=== PATIENT | female | born 1965 | race Caucasian/White ===

== ENCOUNTER 2020-04-08 11:04 | Emergency (ER) | payer BC, OTHER ==
[~2020-04-08] VITALS: Ht 170.2 cm; Wt 113.4 kg
[~2020-04-08 11:04] MED LIST: BUSP10TA3 PO; DULO60CA41 PO; FOLI-43 PO; METH2.5T PO; OMEP40CA13 PO; SULF500T60 PO
[2020-04-08 11:09] VITALS: BP_SYST 159
--- NOTE | 2020-04-08 11:10 | NUR ---
Placed in room 07 . Placed on holiday detector operator, blood pressure machine and pulse oximeter. To gown for exam. Side rails up.
--- NOTE | 2020-04-08 11:15 | NUR ---
Pt brought by self, A&Ox4, pt presents to ER with headache/ dizziness and generalized numbness, pt states symptoms started after taking her medicine twice by accident , total of Metoprolol 50 mg and Gralise 2400 mg, no N/V noted, skin pink and warm, respirations are even and unlabored, BP 156/96, HR 64, O2 98%, will cont to monitor.
--- NOTE | 2020-04-08 11:25 | NUR ---
Dr Villasenor evaluating patient at bedside
[2020-04-08 11:43] VITALS: BP_SYST 152
--- NOTE | 2020-04-08 11:45 | NUR ---
Patient given written and verbal discharge instructions and verbalizes understanding. ER MD discussed with patient the results and treatment provided. Patient in stable condition. ID arm band removed. No Rx given. Patient educated on pain management and to follow up with PMD. Pain Scale 0/10. Opportunity for questions provided and answered. Medication side effect fact sheet provided.
== END 2020-04-08 11:45 | disposition home or self-care (01) ==
LOC: SED 11:04
DX: T44.7X1A Poisoning by beta-adrenoreceptor antagonists, accidental (unintentional), initial encounter (principal); I10 Essential (primary) hypertension; K21.9 Gastro-esophageal reflux disease without esophagitis; Z88.0 Allergy status to penicillin; Z91.018 Allergy to other foods; Z79.899 Other long term (current) drug therapy; Y92.89 Other specified places as the place of occurrence of the external cause
CPT/HCPCS: 93005; 99283